=== PATIENT | male | born 1995 | race African-American/Black ===

== ENCOUNTER 2020-08-08 21:41 | Emergency (ER) | payer BC ==
[2020-08-08] MEDS ORDERED: KETOROLAC 30 MG/ML INJ ONE (23:55)
[2020-08-08] MEDS ORDERED: CYCLOBENZAPRINE 10 MG TAB ONE (23:55)
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
[2020-08-09 00:56] VITALS: BP 133/89; TEMP 97.9; O2SAT 98
--- NOTE | 2020-08-09 13:18 | RAD REPORT ---
EXAM DESCRIPTION: CTSpine Lumbar Wo Con08/09/2020 4:58 am COMPARISON: None. CLINICAL HISTORY: [facility] MAIN PAIN TECHNIQUE: Axial CT images were obtained through the entire lumbar spine without contrast. Sagitta l and coronal reconstructions are provided. Automated exposure control was utilized on this examinati on as a dose lowering technique. FINDINGS: Vertebrae: Vertebral statures and alignment are normal. No acute fracture, dislocation o r destructive osseous process is present. Spinal canal, foramina, and facet joints: Up to mild spinal canal stenosis at L5-S1 due to disc bulge. No other significant stenoses. Paraspinous soft-tissues: Normal. Other Findings: Calcified granulomas are noted in the spleen. IMPRESSION: No acute findings of the lumbar spine. Electronically signed by: Master Fontaine MD 08/09/2020 12:15 AM CDT Due to temporary technical issues with the PACS/Fluency reporting system, reports are being signed by the in house radiologists without review as a courtesy to insure prompt reporting. The interpreting radiologist is fully responsible for the content of the report.
== END 2020-08-09 00:48 | disposition home or self-care (01) ==
LOC: ER 21:41
DX: M54.5 Low back pain (principal)
CPT/HCPCS: 72131; 96372; 99284